=== PATIENT | female | born 1940 | race Caucasian/White ===

== ENCOUNTER → 2017-12-24 | Outpatient (CLI) | payer MEDICARE | END | disposition home or self-care (01) | LOC: SHCH 13:40 | PROVIDERS: ATTEND Internal Medicine Cardiovascular Disease | DX: I10 Essential (primary) hypertension (principal); R06.00 Dyspnea, unspecified | CPT/HCPCS: 93306 ==

== ENCOUNTER → 2017-12-28 | Outpatient (CLI) | payer MEDICARE | END | disposition home or self-care (01) | LOC: SLP 21:13 → EDUNIT# 02-16 20:30 | PROVIDERS: ATTEND Internal Medicine Cardiovascular Disease | DX: G47.30 Sleep apnea, unspecified (principal) | CPT/HCPCS: 95810 ==

== ENCOUNTER → 2018-01-10 | Outpatient (CLI) | payer MEDICARE | END | disposition home or self-care (01) | LOC: SLP 19:49 → EDUNIT# 03-07 20:30 | PROVIDERS: ATTEND Internal Medicine Cardiovascular Disease | DX: G47.33 Obstructive sleep apnea (adult) (pediatric) (principal) | CPT/HCPCS: 95811 ==